=== PATIENT | female | born 1955 | race Asian ===

== ENCOUNTER 2019-10-04 17:19 | Emergency (ER) | payer OTHER ==
[~2019-10-04] VITALS: Ht 149.9 cm; Wt 40.8 kg
[~2019-10-04 17:19] MED LIST: NO HOME MEDS
[2019-10-04 17:39] VITALS: BP 173/60
[2019-10-04] MEDS ORDERED: acetaminophen 325mg tablet PO ONE ×2 (18:20→18:45)
[2019-10-04] MEDS ORDERED: ketorolac trometh inj. 60 MG/2 ML VIAL IM ONE (18:20)
[2019-10-04] MEDS ORDERED: predniSONE 20 mg tablet PO ONE (18:20)
== END 2019-10-04 18:49 | disposition home or self-care (01) ==
LOC: ER 17:20
DX: R51 Headache (principal); R21 Rash and other nonspecific skin eruption; R11.0 Nausea; Z98.890 Other specified postprocedural states
CPT/HCPCS: 96372; 99283; J1885; J7512; 99281